=== PATIENT | male | born 1995 | race Caucasian/White ===

== ENCOUNTER 2019-03-17 11:10 | Day surgery (SDC) | payer OTHER, SELFPAY ==
--- NOTE | 2019-03-17 | GASB_PTH ---
PATIENT: RAVINDER JAMES LOC: EN U#:[id number] AGE/SX: 23/M ROOM: RE03/17/[address]: Dr. Lynda Armstrong MD : 1995 BED: DIS: 03/17/2019 SPEC #: [id number] RECD: 03/17/19 14:17 STATUS: NAM REJenaro #: [id number] KIARA: 03/17/19 00:[address]: Lynda Armstrong DEPT: SURGICAL PATHOLOGY RECD BY: Nikhil Marquez ENTERED: 03/17/19 14:18 SP TYPE: Gastric Bx OTHR DR: Dr. Ernie Grimaldo MD Tissues: A - Gastric mucous membrane B - Gastric mucous membrane Procedures: Special Stain Group II Surgery Specimen Level IV Alcian Blue/PAS (control) HEADER OPERATION: Colonoscopy, EGD ([facility] [place]) PRE-OP DIAGNOSIS: Rectal bleeding TISSUE SUBMITTED: A - Antral biopsy, H. pylori, B - GE junction biopsy MICROSCOPIC DIAGNOSIS A. Antral biopsy: Mild gastritis. See microscopic description and comment. B. GE junction, biopsy: Fragments of gastroesophageal mucosa with moderate acute and chronic inflammation. Intestinal metaplasia (goblet cell metaplasia) is not identified. See comment. SJ:asmita 03/18/19 COMMENT A. The results of immunohistochemistry for Helicobacter pylori will be reported separately ([id number]). B. Alcian blue/PAS stain with matched control is used in the evaluation of the specimen. MICROSCOPIC DESCRIPTION Slides are reviewed. A. The specimen shows fragments of gastric mucosa with chronic inflammatory cell infiltrates in the lamina propria consisting of lymphocytes and plasma cells, consistent with mild chronic gastritis. GROSS DESCRIPTION A - Received in fixative is one container labeled with the patient's name and designated antral biopsy. The specimen consists of one irregular fragment of pink soft tissue that measures 0.1 x 0.1 x 0.1 cm. The specimen is totally submitted in one cassette. B - Received in fixative is one container labeled with the patient's name and designated GE junction biopsy. The specimen consists of three irregular fragments of pink soft tissue that in aggregate measure 0.3 x 0.1 x 0.1 cm. The specimen is totally submitted in one cassette. / CE:asmita 03/17/19 TC:2 CPT: 56091 x2, 74345
[2019-03-17 11:38] VITALS: BP 130/69; PULSE 56; RESP 16; TEMP 36.6; O2SAT 100; BMI 32.2
--- NOTE | 2019-03-17 12:30 | IMM_PTH ---
PATIENT: RAVINDER JAMES LOC: [facility] U#:[id number] AGE/SX: 23/M ROOM: RE03/17/[address]: Dr. Lynda Armstrong MD : 1995 BED: DIS: 03/17/2019 SPEC #: [id number] RECD: 03/17/19 15:25 STATUS: NAM REQ #: [id number] KIARA: 03/17/19 12:[address]: Lynda Armstrong DEPT: IMMUNOHISTOCHEMISTRY RECD BY: Melanie Roman ENTERED: 03/17/19 15:26 SP TYPE: IMMUNO OTHR DR: Dr. Ernie Grimaldo MD Tissues: A - Stomach, NOS Procedures: H Pylori (initial) PHYSICIAN & INSTITUTION [place] [id number] SPECIMEN INFORMATION: Tissue Source: A - Antral biopsy Clinical Info: Rectal bleeding Specimen Number: [id number] CPT code: 89825 METHODOLOGY: Deparaffinized sections of prefer/formalin-fixed tissue or PAP/DQ stained slides are incubated with monoclonal/polyclonal antibodies/oligonucleotide probes. Localization is made via biotin free immunoperoxidase method. Appropriate controls are performed and reacted as expected. Results on target cell population are indicated in the following table: RESULTS: ANTIBODY / CLONE RESULT Block A H Pylori (polyclonal) negative These tests were developed and their performance characteristics determined by [facility]. They may not have been cleared or approved by the [place]. Food and Drug Administration. The FDA has determined that such clearance or approval is not necessary. INTERPRETATION: A. Antral biopsy: Negative for Helicobacter pylori organisms. SJ:asmita 03/18/19
[2019-03-17 13:05] VITALS: BP 125/70; BP 130/69; PULSE 83; RESP 18; TEMP 36.8; O2SAT 98
[2019-03-17 13:10] VITALS: BP 130/69; BP 130/83; PULSE 68; RESP 16; O2SAT 99
[2019-03-17 13:15] VITALS: BP 116/83; BP 130/69; PULSE 63; RESP 16; O2SAT 99
[2019-03-17 13:20] VITALS: BP 125/80; BP 130/69; PULSE 48; RESP 16; TEMP 36.2; O2SAT 100
--- NOTE | 2019-03-17 13:43 | OP.ENDO_ITS ---
03/17/2019 Ernie Grimaldo [address] [place] [address] Re : Upper GI endoscopy procedure for Rajiv Bean Dear Dr. Grimaldo This procedure was performed on Sunday, March 17, 2019. My impressions and recommendations are as follows: Impressions : - Normal first portion of the duodenum and second portion of the duodenum. - Erythematous mucosa in the antrum. Biopsied. - Z-line irregular. Biopsied. Recommendations : - Discharge patient to home (ambulatory). - Resume previous diet. - Continue present medications. - Await pathology results. - Return to physician physician assistant in 1 week. My findings are described in the full procedure note, which is enclosed. If I can be of further assistance, please feel free to contact me at Doctor phone number(s): , Work: . Sincerely, MD Lynda Dean MD 03/17/2019 1:43:19 PM This report has been signed electronically.
--- NOTE | 2019-03-17 13:45 | OP.ENDO_ITS ---
03/17/2019 Ernie Grimaldo [address] [place] [address] Re : Colonoscopy procedure for Rajiv Bean Dear Dr. Grimaldo This procedure was performed on Sunday, March 17, 2019. My impressions and recommendations are as follows: Impressions : - Non-bleeding internal hemorrhoids. - No specimens collected. Recommendations : - Repeat colonoscopy as per ACS guidelines for screening for colon cancer. - Return to physician lead recreation assistant in 1 week. - Continue present medications. My findings are described in the full procedure note, which is enclosed. If I can be of further assistance, please feel free to contact me at Doctor phone number(s): , Work: . Sincerely, MD Lynda Dean MD 03/17/2019 1:45:00 PM This report has been signed electronically.
[2019-03-17 14:01] VITALS: BP 130/69
== END 2019-03-17 14:01 | disposition home or self-care (01) ==
LOC: EN 11:16 → AC 11:18
PROVIDERS: Family Provider Family Medicine; PCP Family Medicine; Referring Provider Surgery; Visit Provider Surgery
PROC: 0DJD8ZZ Inspection of Lower Intestinal Tract, Via Natural or Artificial Opening Endoscopic (ICD-10-PCS; CPT 45378; principal; 2019-03-17 12:25)
DX: K29.70 Gastritis, unspecified, without bleeding (principal); K64.8 Other hemorrhoids; K31.89 Other diseases of stomach and duodenum; K22.8 Other specified diseases of esophagus; Z84.89 Family history of other specified conditions; F10.99 Alcohol use, unspecified with unspecified alcohol-induced disorder; F17.210 Nicotine dependence, cigarettes, uncomplicated
CPT/HCPCS: 43239; 45378; 88305; 88313; 88342; J7120; J2405

== ENCOUNTER 2019-06-26 16:42 | Emergency (ER) | payer OTHER, SELFPAY ==
[2019-06-26 16:42] VITALS: BP 135/67; PULSE 65; RESP 16; TEMP 36.6; O2SAT 98; BMI 29.7
[2019-06-26] MEDS: Ondansetron ODT 4 MG Tablet PO (17:06)
--- NOTE | 2019-06-26 17:07 | ED.DCSUM_ITS ---
History of Present Illness Chief Complaint: Nausea/Vomiting/Diarrhea Informant: Patient Onset: Yesterday Context: Gradual Onset Timing: Continuous Current Severity: Moderate Maximum Severity: Moderate Narrative: The patient presents to the emergency department nausea, vomiting, diarrhea. Patient states that there has been people at work sick with similar symptoms. He states symptoms began yesterday. He states he had some abdominal cramping. Since then, he had 7 episodes of loose, watery diarrhea. He denies any fevers or chills. He had one episode of emesis. There is been no blood in the emesis when the diarrhea. He takes no daily medications. He is otherwise been in his normal state of health. Prior similar symptoms: No Recent Illness/Hospitalization: No Past Medical History - Allergies and Home Meds Allergies/Adverse Reactions: Allergies No Known Allergies Allergy (Verified 03/17/19 11:37) Primary Care Physician: Ernie Grimaldo MD [Primary Care Provider] - Prior records reviewed: Yes Past Medical History: None Surgical History: no surgical history Smoking Status: Current every day smoker Review of Systems General: Denies: Chills, Fever, Sweats Eyes: Denies: Visual changes - bilaterally, Diplopia ENT: Denies: Rhinorrhea, Sore throat Cardiovascular: Denies: Chest pain, Palpitations Respiratory: Denies: Dyspnea, Cough, Dyspnea on exertion Gastrointestinal: Reports: Nausea, Vomiting, Diarrhea Genitourinary: Denies: Dysuria, Hematuria, Frequency Musculoskeletal: Denies: Back pain, Extremity Pain Skin: Denies: Rash, Wounds Neurological: Denies: Headache, Weakness, Numbness Physical Exam Vital Signs/Narrative: Vital Signs Temp Pulse Resp BP Pulse Ox 06/26/19 16:42 97.8 F 65 16 135/67 H 98 Inital Vital Signs reviewed: Yes General: Well nourished, Well developed, No Acute Distress Head: Normocephalic, Atraumatic Eyes: Perrl, EOMI ENT: Moist mucous membranes, No rhinorrhea Neck: Supple, Nontender Cardiovascular: Regular rate, Regular rhythm, No murmurs Respiratory: No distress, CTA bilaterally, Chest nontender Abdomen: Soft, Nontender, Nondistended, Normal bowel sounds Back: Nontender, Normal Inspection Extremities: Nontender, No edema Skin: Normal color, No rash Neurological: Alert, Oriented x3, Cranial nerves II-XII grossly intact, Normal Strength, Normal Sensation Psychological: Normal affect, Normal Mood Diagnostic/Tx/Re-eval The patient symptoms seem consistent with a gastroenteritis. His abdomen is soft and nontender. His vitals are unremarkable. He does appear to be well- hydrated. Patient was given oral Zofran. He will be continued on this for the next 48 hours. He was counseled on concerning symptoms. He will be discharged home. Impression 1. Gastroenteritis ED Disposition - Plan for ED Patient: Instructions: GASTROENTERITIS, Viral (7y-Adult) Prescriptions: Ondansetron [Zofran Odt] 4 mg PO Q8H PRN PRN #10 tab PRN Reason: Nausea Prescription Printed Referrals: Ernie Grimaldo MD [Primary Care Provider] -
== END 2019-06-26 17:15 | disposition home or self-care (01) ==
LOC: ED 16:58
PROVIDERS: Emergency Provider Emergency Medicine; Family Provider Family Medicine; PCP Family Medicine
DX: K52.9 Noninfective gastroenteritis and colitis, unspecified (principal); F17.200 Nicotine dependence, unspecified, uncomplicated
CPT/HCPCS: 99283

== ENCOUNTER 2021-11-14 11:13 | Outpatient (CLI) | payer OTHER, SELFPAY | END 2021-11-14 23:59 | disposition short-term general hospital (02) | LOC: LABSPEC 11:14 | PROVIDERS: PCP Family Medicine; Referring Provider Physician Assistant; Visit Provider Physician Assistant | DX: Z11.52 Encounter for screening for COVID-19 (principal) | CPT/HCPCS: 87635; U0003; U0005 ==